=== PATIENT | male | born 1990 | race Caucasian/White ===

== ENCOUNTER 2019-04-06 21:26 | Emergency (ER) | payer BC, OTHER ==
[~2019-04-06] VITALS: Ht 172.7 cm; Wt 109.1 kg
[2019-04-06] MEDS ORDERED: ADACEL/BOOSTRIX VACCINE (DIPHTH/PERTUSS/ACELL/TETANUS)0.5ML SYR (90715) IM ONE (22:45)
[2019-04-06] MEDS ORDERED: LIDOCAINE 1% MDV 20ML VIAL IM ONE (22:45)
[2019-04-06 23:30] VITALS: BP 134/87
== END 2019-04-06 23:31 | disposition home or self-care (01) ==
LOC: M ED 21:26
DX: S61.211A Laceration without foreign body of left index finger without damage to nail, initial encounter (principal); W26.0XXA Contact with knife, initial encounter; Y92.009 Unspecified place in unspecified non-institutional (private) residence as the place of occurrence of the external cause; Y93.89 Activity, other specified; Y99.8 Other external cause status